=== PATIENT | female | born 1985 | race Hispanic/Latino ===

== ENCOUNTER 2020-03-31 20:27 | Emergency (ER) | payer SELFPAY ==
--- OUTSIDE RECORDS SUMMARY | 2020-03-31 20:31 | XMS REPORT | Continuity of Care Document ---
:1985 Author Organization [facility] t Address [address] [place] [address] Care Team Providers Name Role Phone Unavailable Unavailable Unavailable Payers Payer Name Policy Type Policy Number Effective Date Expiration Date S ource Problems This patient has no known problems. Allergies, Adverse Reactions, Alerts Allergy Allergy Status Severity Reaction(s) Onset Inactive Treating Comm ents Source Name Type Date Date Clinician CODEINE DA Active U 2009-0 [facility] No Known DA Active U 2009-0 [facility] Contrast 3-16 [facility] No Known DA Active U 2009-0 [facility] Food 3-16 [facility] No Known DA Active U 2009-0 [facility] Other 3-16 [facility] Medications This patient has no known medications. Procedures This patient has no known procedures. Results Test Description Test Time Test Comments Results Result Comments Source BEDSIDE CREATININE 2019-02-17 13:37:00 Test Item Value Reference Range Interpretation Comme nts BEDSIDE CREATININE (test code = CREATBED) 0.6 mg/dL 0.52-1.04 N - US PELVIC [id number] 02:02:00 FAX: Fernanda Dutta [phone] [place]: St: REG Name: OLIVIA CORRIGAN [facility] [place] : 1985 Age/S: 33/F [address] Unit#: [id number] Loc: [place] [address] Phys: Fernanda Romo NP Acct: [id number] Dis Date: Status: REG ER PHONE #: [phone] Exam Date: 12/25/2018 0156 FAX #: [phone] Reason: LOWER ABD PAIN EXAMS: CPT CODE: [id number] US PELVIC COMPLETE 17931 Exam: Pelvic sonogram. Location: H 12 History: See reason on US PELVIC NON OB COMPLETE Technique: A real-time transabdominal pelvic sonogram was performed. A transvaginal exam was performed to better evaluate the pelvic anatomy. Grayscale, color flow and spectral analysis of the ovarian vessels was performed. Findings: The uterus is normal in size, shape and echotexture and measures 8.5 x 4.0 x 5.1 cm. The endometrial canal is empty. The stripe measures 1.1 cm. The ovaries are well visualized. The right ovary measures 2.8 x 2.4 x 2.3 cm with a 1.3 cm cyst noted. The left ovary measures 2.8 x 1.9 x 1.8 cm. There is good blood flow to both ovaries. No adnexal mass is seen. A small amount of free fluid is found the right adnexa. Impression: 1. Right ovarian cyst and surrounding fluid. 2. Otherwise unremarkable exam. at 0202 Reported and signed by: Ranjith Pimentel CC: Fernanda Romo NP Techn ologist: Radha Valentine RDMS RVT Trnscrd Date/Time/By: 12/25/2018 (0202) : By: TootieFC PAGE 1 Signed Report FAX: Fernanda Dutta [phone] [place]: St: REG Name: OLIVIA CORRIGAN [facility] : 1985 Age/S: 33/F [address] Unit #: [id number] Loc: [place] [address] Phys: Fernanda Romo [employer] MANAGER Acct: [id number] Dis Date: Status: RE G ER PHONE #: [phone] Exam Date: 12/25/2018155 FAX #: [phone] Reason: LOWER ABD PAIN EXAMS: CPT CODE: [id number] US PELVIC COMPLETE 74545 <Continued> Orig Print D/T: S: 12/25/2018 (0205) PAGE 2 Signed Report- US TRANSVAGINAL NON [id number] 02:02:00 FAX: Fernanda Dutta [phone] [place]: St: REG Name: OLIVIA CORRIGAN [facility] : 1985 Age/S: 33/F [address] Unit#: [id number] Loc: [place] [address] Phys: Fernanda Romo [employer] STORE MANAGER Acct: [id number] Dis Date: Status: REG ER PHONE #: [phone] Exam Date: 12/25/2018155 FAX #: [phone] Reason: See reason on US PELVIC NON OB COMPLETE EXAMS: CPT CODE: [id number] [place] [address] Exam: Pelvic sonogram. Location: H 12 History: See reason on US PELVIC NON OB COMPLETE Technique: A real-time transabdominal pelvic sonogram was performed. A transvaginal exam was performed to better evaluate the pelvic anatomy. Grayscale, color flow and spectral analysis of the ovarian vessels was performed. Findings: The uterus is normal in size, shape and echotexture and measures 8.5 x 4.0 x 5.1 cm. The endometrial canal is empty. The stripe measures 1.1 cm. The ovaries are well visualized. The right ovary measures 2.8 x 2.4 x 2.3 cm with a 1.3 cm cyst noted. The left ovary measures 2.8 x 1.9 x 1.8 cm. There is good blood flow to both ovaries. No adnexal mass is seen. A small amount of free fluid is found the right adnexa. Impression: 1. Right ovarian cyst and surrounding fluid. 2. Otherwise unremarkable exam. at 0202 Reported and signed by: Ranjith Pimentel CC: Fernanda Romo NP Techn ologist: Radha Valentine [facility] RVT; S#:[id number] Trnscrd Date/Time/By: 12/25/2018 (0202) : By: TootieFC PAGE 1 Signed Report FAX: Fernanda Dutta [phone] [place]: St: REG Name: OLIVIA CORRIGAN [facility] : 1985 Age/S: 33/F [address] Unit #: [id number] Loc: [place] [address] Phys: Fernanda Romo NP Acct: [id number] Dis Date: Status: RE ER PHONE #: [phone] Exam Date: 12/25/2018 0156 FAX #: [phone] Reason: See reason on US PELVIC NON OB COMPLETE EXAMS: CPT CODE: [id number] [place] [address] <Continued> Orig Print D/T: S: 12/25/2018 (0205) PAGE 2 Signed Report- DUP AB/PEL/SC/[id number] 02:02:00 FAX: Fernanda Dutta [phone] [place]: St: REG Name: OLIVIA CORRIGAN [facility] : 1985 Age/S: 33/F [address] Unit#: [id number] Loc: [place] [address] Phys: Fernanda Romo [employer]ORE MANAGER Acct: [id number] Dis Date: Status: REG ER PHONE #: [phone] Exam Date: 12/25/2018 0156 FAX #: [phone] Reason: See reason on US PELVIC NON OB COMPLETE EXAMS: CPT CODE: [id number] [facility] AB/PEL/SC/LTD 52789 Exam: Pelvic sonogram. Location: H 12 History: See reason on US PELVIC NON OB COMPLETE Technique: A real-time transabdominal pelvic sonogram was performed. A transvaginal exam was performed to better evaluate the pelvic anatomy. Grayscale, color flow and spectral analysis of the ovarian vessels was performed. Findings: The uterus is normal in size, shape and echotexture and measures 8.5 x 4.0 x 5.1 cm. The endometrial canal is empty. The stripe measures 1.1 cm. The ovaries are well visualized. The right ovary measures 2.8 x 2.4 x 2.3 cm with a 1.3 cm cyst noted. The left ovary measures 2.8 x 1.9 x 1.8 cm. There is good blood flow to both ovaries. No adnexal mass is seen. A small amount of free fluid is found the right adnexa. Impression: 1. Right ovarian cyst and surrounding fluid. 2. Otherwise unremarkable exam. at 0202 Reported and signed by: Ranjith Pimentel CC: Fernanda Romo NP Techn ologist: Radha Valentine RDMS RVT Trnscrd Date/Time/By: 12/25/2018 (020) : By: Tootie PAGE 1 Signed Report FAX: Fernanda Dutta [phone] [place]: St: REG Name: CORRIGANOLIVIA LUKE [facility] : 1985 Age/S: 33/F [address] Unit #: [id number] Loc: [place] [address] Phys: Fernanda Romo NP Acct: [id number] Dis Date: Status: DEV REDDY PHONE #: [phone] Exam Date: 12/25/2018 0156 FAX #: [phone] Reason: See reason on US PELVIC NON OB COMPLETE EXAMS: CPT CODE: [id number] DUP AB/PEL/SC/LTD 60768 <Continued> Orig Print D/T: S: 12/25/2018 (2195) PAGE 2 Signed Report BASIC METABOLIC [id number] 00:29:00 Test Item Value Reference Range Interpretation Comments SODIUM (test code = 139 mmol/L 137-145 N NA) POTASSIUM (test code 3.7 mmol/L 3.4-5.0 N = K) CHLORIDE (test code = 100 mmol/L 98-107 N CL) CARBON DIOXIDE (test 25 mmol/L 22-30 N code = CO2) GLUCOSE (test code = 118 mg/dL 74-106 H GLU) BLOOD UREA NITROGEN 9 mg/dL 7-17 N (test code = BUN) GLOMERULAR FILTRATION 121 >60 The es timated RATE (test code = glomerular filtration GFR) rate is compute d usingpatient ra ce, age (>18), sex, and serum creatinine. If anyof the needed data elements are mi ssing the Laboratory cannot compute an lee mation of the glomerul ar filtration rate . CREATININE (test code 0.6 mg/dL 0.5-1.0 N = CREAT) CALCIUM (test code = 9.7 mg/dL 8.4-10.2 N CA) LIVER FUNCTION [id number] 00:29:00 Test Item Value Reference Range Interpretation Comments TOTAL PROTEIN (test 8.0 g/dL 6.3-8.2 N code = PROT) ALBUMIN (test code = 4.8 g/dL 3.5-5.0 N ALB) BILIRUBIN TOTAL (test 0.3 mg/dL 0.2-1.3 N code = BILT) BILIRUBIN CONJUGATED 0 mg/dL 0-0.3 N ~~~~~~~ ~~~~~~~~~~~~~~ (test code = BILCON) ~~~~~~~ ~~~~~~~~~~~~~~ ~~~~~~~~~~~~~~~ ~~~CON JUGATED BILIRUB IN IS THE REPLACEMENT ASSAY FOR DIRECTBILIRUBIN .~~~~~ ~~~~~~~~~~~~~~~ ~~~~~~ ~~~~~~~~~~~~~~~ ~~~~~~ ~~~~~~~~~~~~~ BILIRUBIN UNCONJUGATED 0.1 mg/dL 0-1.1 N (test code = BILUNC) SGOT/AST (test code = 17 U/L 15-46 N AST) SGPT/ALT (test code = 23 U/L 13-69 N ALT) ALKALINE PHOSPHATASE 54 U/L 38-126 N (test code = ALKP) [id number] 00:29:00 Test Item Value Reference Range Interpretation Comments LIPASE (test code = LIP) 44 U/L 23-300 N - CT ABD PELVIS [id number] 00:29:00 FAX: Fernanda Dutta [phone] [place]: St: REG Name: OLIVIA CORRIGAN [facility] : 1985 Age/S: 33/F [address] Unit: [id number] Loc: [place] [address] Phys: Fernanda Romo [employer] STORE MANAGER Acct: [id number] Dis Date: Status: REG ER PHONE #: [phone] Exam Date: 12/25/2018 0018 FAX #: [phone] Reason: diffuse abd pain EXAMS: CPT CODE: [id number] CT ABD PELVIS W/CONT 92822 EXAM: - CT ABD PELVIS W/CONT LOCATION: C3 INDICATION: 33 years -old Female with diffuse abd pain TECHNIQUE: Contrast - IV contrast was given. No oral contrast was given Portal venous phase - abdomen and pelvis Delayed images through the abdomen obtained. Reconstructions - coronal and sagittal planes This exam was performed according to our departmental dose-optimization program, which includes automated exposure control, adjustment of the mA and/or kV according to patient size and/or use of iterative reconstruction technique COMPARISON: None FINDINGS: Statements: None. Thoracic: Included images of the lower chestdemonstrate no abnormalities. Hepatobiliary: The liver is normal without focal le jose elias. The gallbladder is normal. No biliary dilation. Pancreas: Normal. Spleen: Normal. Adrenals: Normal. Genitourinary: In the right kidney 1.6 cm cortical cyst like lesion is noted. No hydronephrosis. Evaluation of the bladder islimited, but no obvious bladder abnormality is present. Bilateral fallopian tube occlusion devices noted. 1.6 cm cystlike lesion in the right ovary. 4 x 3.1 x 3.1 cm geographic fluid density identified in the right adnexa. Gastrointestinal: No bowel obstruction or perienteric inflammation. The appendix is normal. PAGE 1 Signed Report (CONTINUED) FAX: Fernanda Dutta [phone] [place]: St: REG -- Name:OLIVIA CORRIGAN [facility] : 1985 Age/S: 33/F [address] Unit: [id number] Loc: [place] [address] Phys: Fernanda Romo NP Acct: [id number] Dis Date: Status: REG ER PHONE #: [phone] Exam Date: 12/25/2018 0018 FAX #: [phone] Reason: diffuse abd pain EXAMS: CPT CODE: [id number] CT ABD PELVIS W/CONT 51388 <Continued> Vascular: No evidence of aneurysm or dissection. Lymphatics: No enlarged lymph nodesby CT size criteria. Bones/Soft Tissues: No acute osseous findings. No ventral hernias. Peritoneum/Other: No extraluminal air. No extraluminal fluid. IMPRESSION: 1.6 cm right ovarian cystlike lesion. 4 x 3.1 x 3.1 cm geographic fluid density in the right adnexa likely a peritoneal inclusion cyst.Normal appendix. at 0029 Reported and signed by: Shaun Grullon MD CC: Fernanda Romo NP Technologist: Rose Burleson; BRENNAN DACOSTA Trnscrd Dt/Tm: 12/25/2018 (0029) [email or web address] Orig Print D/T: S: 12/25/2018 (0032 PAGE 2 Signed ReportHCG [id number] 00:23:00 Test Item Value Reference Range Interpretation Comments HCG POC (test code <5.0 IU/L 0-4.9 N = HCGPOC) Result s of 5.0-25.0 IU/L a re indeterminate a nd do not ruleout pregnan cy. Because HCG values doub le approximately e very48 hours in a norm al , swapna ents with low levels ofHC G should be resampled and r etested after 48 hours toconfirm . URINALYSIS [id number] 00:22:00 Test Item Value Reference Range Interpretation Comments UA COLOR (test code = COLU) Straw Yellow UA APPEARANCE (test code = Slightly-Cloudy Clear APPU) UA GLUCOSE DIPSTICK (test Negative Negative code = DGLUU) UA BILIRUBIN DIPSTICK (test Negative Negative code = BILU) UA KETONE DIPSTICK (test code Negative mg/dL Negative = KETU) UA SPECIFIC GRAVITY (test 1.004 <1.030 code = SGU) UA BLOOD DIPSTICK (test code 1+ Negative A = PARAM) UA PH DIPSTICK (test code = 7.0 5.0-8.0 JUNE) UA PROTEIN DIPSTICK (test NEGATIVE mg/dL Negative code = PROU) UA UROBILINOGEN DIPSTICK Negative mg/dL Negative (test code = URO) UA NITRITE DIPSTICK (test Negative Negative code = ISMAEL) UA LEUKOCYTE ESTERASE TRACE Negative A DIPSTICK (test code = LEUU) UA WBC (test code = WBCU) 0-3 /HPF <4-5 UA RBC (test code = RBCU) 0-3 /HPF <4-5 UA BACTERIA (test code = Rare /HPF None-Rare BACU) UA SQUAMOUS CELLS (test code 0-5 (RARE) /HPF 0-5 (RARE) = SQU) CBC W/AUTO [id number] 00:19:00 Test Item Value Reference Range Interpretation Comments WHITE BLOOD CELL (test code = 14.1 x10 3/uL 5.0-12.0 H WBC) RED BLOOD CELL (test code = 4.90 x10 6/uL 4.20-5.40 N RBC) HEMOGLOBIN (test code = HGB) 14.8 g/dL 12.0-16.0 N HEMATOCRIT (test code = HCT) 43.7 % 36.0-46.0 N MEAN CELL VOLUME (test code = 89 fL 81-99 N MCV) MEAN CELL HGB (test code = 30.2 pg 27-31 N MCH) MEAN CELL HGB CONCENTRATION 33.9 g/dL 33-37 N (test code = MCHC) RED CELL DISTRIBUTION WIDTH 12.3 % 11.5-15.5 N (test code = RDW) PLATELET COUNT (test code = 290 x10 3/uL 130-400 N PLT) MEAN PLATELET VOLUME (test 10.4 fL 9.4-16.4 N code = MPV) NEUTROPHIL % (test code = NT%) 76.9 % 43-65 H IMMATURE GRANULOCYTE % (test 0.4 % 0.0-2.0 N code = IG%) LYMPHOCYTE % (test code = LY%) 15.7 % 20.5-45.5 L MONOCYTE % (test code = MO%) 6.7 % 5.5-11.7 N EOSINOPHIL % (test code = EO%) 0.1 % 0.9-2.9 L BASOPHIL % (test code = BA%) 0.2 % 0.2-1.0 N NUCLEATED RBC % (test code = 0.0 % 0-1.0 N NRBC%) NEUTROPHIL # (test code = NT#) 10.88 x10 3/uL 2.2-4.8 H IMMATURE GRANULOCYTE # (test 0.05 x10 3/uL 0-0.03 H code = IG#) LYMPHOCYTE # (test code = LY#) 2.22 x10 3/uL 1.3-2.9 N MONOCYTE # (test code = MO#) 0.94 x10 3/uL 0.3-0.8 H EOSINOPHIL # (test code = EO#) 0.01 x10 3/uL 0.0-0.2 N BASOPHIL # (test code = BA#) 0.03 x10 3/uL 0.0-0.1 N
[2020-03-31] MEDS ORDERED: NA CHLORIDE 0.9% 1,000 ML ONE ×2 (21:19→22:41)
[2020-03-31 21:21] LABS: Absolute Lymphocytes (CBC) 1.6 K/uL (0.7-4.9); Basophils % 0.4 % (0-1.3); Hematocrit 39.8 % (36.0-45.0); Lymphocytes % 13.8 % (15.3-44.8); MPV 8.1 fL (7.6-11.3); RBC Red Blood Cell Count 4.26 M/uL (3.86-4.86)
[2020-03-31] MEDS ORDERED: ACETAMINOPHEN 500 MG TAB ONE (21:31)
[2020-03-31 21:38] LABS: ALT/SGPT 13 U/L (12-78); AST/SGOT 7 U/L (15-37); Albumin 3.4 g/dL (3.4-5.0); Alkaline Phosphatase 73 U/L (45-117); BUN Blood Urea Nitrogen 5 mg/dL (7-18); Bicarbonate 27 mmol/L (21-32); Bilirubin Direct 0.2 mg/dL (0-0.2); Bilirubin Total 0.8 mg/dL (0.2-1.0); Glucose Level 91 mg/dL (74-106); Potassium 3.6 mmol/L (3.5-5.1); Protein, Total 6.4 g/dL (6.4-8.2); Sodium Level 140 mmol/L (136-145)
--- NOTE | 2020-03-31 22:07 | RAD REPORT ---
EXAM DESCRIPTION: RAD - Chest Single View - 03/31/2020 9:08 pm CLINICAL HISTORY: COUGH Chest pain. COMPARISON: No comparisons FINDINGS: Portable technique limits examination quality. The lungs are grossly clear. The heart is normal in size. No displaced fractures. IMPRESSION: No acute intrathoracic process suspected.
--- NOTE | 2020-04-01 00:04 | EDPHYS ---
Physician Documentation [facility] Name: Lisseth Youngblood Age: 34 yrs Sex: Female : 1985 Arrival Date: 03/31/2020 Time: 20:32 Bed 20 Private MD: ED Physician Maxx Orellana HPI: 03/31 21:39 This 34 yrs old Female presents to ER via Ambulatory with complaints of mh7 General Weakness, Swollen Glands, Lethargic. 21:39 The patient presents with sore throat. The patient describes throat pain as mh7 intermittent. Onset: The symptoms/episode began/occurred 1 week(s) ago. Severity of symptoms: At their worst the symptoms were moderate, 3 day(s) ago, in the emergency department the symptoms are unchanged. Modifying factors: The symptoms are alleviated by over the counter medications, Tylenol, the symptoms are aggravated by swallowing, Patient's oral intake status: limited fluid intake, limited food intake, unaware of sick contact. Associated signs and symptoms: Pertinent positives: cough, fever, flu-like symptoms, rhinorrhea, Sore throat body aches, Pertinent negatives chest pain, diarrhea, earache, headache, shortness of breath, vomiting. The patient has experienced similar episodes in the past, multiple times. Historical: - Allergies: 20:39 No Known Allergies; sg - Immunization history:: Adult Immunizations up to date. - Social history:: Smoking status: Patient denies any tobacco usage or history of. ROS: 21:39 Eyes: Negative for injury, pain, redness, and discharge, Cardiovascular: Negative for mh7 chest pain, palpitations, and edema, Abdomen/GI: Negative for abdominal pain, nausea, vomiting, diarrhea, and constipation, Back: Negative for injury and pain, : Negative for injury, bleeding, discharge, and swelling, MS/Extremity: Negative for injury and deformity, Skin: Negative for injury, rash, and discoloration, Neuro: Negative for headache, weakness, numbness, tingling, and seizure, Psych: Negative for depression, anxiety, suicide ideation, homicidal ideation, and hallucinations, Allergy/Immunology: Negative for hives, rash, and allergies, Endocrine: Negative for neck swelling, polydipsia, polyuria, polyphagia, and marked weight changes. Exam: 21:39 Head/Face: Normocephalic, atraumatic. Eyes: Pupils equal round and reactive to light, mh7 extra-ocular motions intact. Lids and lashes normal. Conjunctiva and sclera are non-icteric and not injected. Cornea within normal limits. Periorbital areas with no swelling, redness, or edema. 21:39 Chest/axilla: Normal chest wall appearance and motion. Nontender with no deformity. No lesions are appreciated. Cardiovascular: Regular rate and rhythm with a normal S1 and S2. No gallops, murmurs, or rubs. Normal PMI, no JVD. No pulse deficits. Respiratory: Lungs have equal breath sounds bilaterally, clear to auscultation and percussion. No rales, rhonchi or wheezes noted. No increased work of breathing, no retractions or nasal flaring. Abdomen/GI: Soft, non-tender, with normal bowel sounds. No distension or tympany. No guarding or rebound. No evidence of tenderness throughout. Back: No spinal tenderness. No costovertebral tenderness. Full range of motion. Skin: Warm, dry with normal turgor. Normal color with no rashes, no lesions, and no evidence of cellulitis. MS/ Extremity: Pulses equal, no cyanosis. Neurovascular intact. Full, normal range of motion. Neuro: Awake and alert, GCS 15, oriented to person, place, time, and situation. Cranial nerves II-XII grossly intact. Motor strength 5/5 in all extremities. Sensory grossly intact. Cerebellar exam normal. Normal gait. Psych: Awake, alert, with orientation to person, place and time. Behavior, mood, and affect are within normal limits. 21:39 Constitutional: The patient appears in no acute distress, alert, awake, uncomfortable. 21:39 ENT: External ear(s): are unremarkable, Nose: is normal, Mouth: is normal, Posterior pharynx: Airway: normal, Tonsils: bilaterally enlarged, with erythema, Uvula: normal, swelling, that is mild, erythema, that is mild, exudate, that is mild, peritonsillar mass, is not appreciated, pooling of secretions, is not appreciated, Dental exam: normal, Voice: is normal, Breath odor: is normal. 21:39 Neck: C-spine: appears grossly normal, Thyroid: appears normal, Trachea: is midline with no obvious abnormalities, ROM/movement: is normal, Lymph nodes: lymphadenopathy is appreciated, anterior cervical nodes. Vital Signs: 21:21 BP 106 / 65; Pulse 104; Resp 19; Temp 101.3; Pulse Ox 100% ; rv 22:19 BP 95 / 55; Pulse 93; Resp 16; Temp 98.6; Pulse Ox 100% on R/A; rv 23:00 BP 95 / 59; Pulse 84; Resp 16; Pulse Ox 100% on R/A; rv 23:27 BP 117 / 46; Pulse 84; Resp 17; Pulse Ox 99% on R/A; rv MDM: 20:46 Patient medically screened. [facility] 04/01 00:00 Differential diagnosis: bronchitis, epiglottitis, influenza, laryngitis, peritonsillar 7 abscess pharyngitis, tonsillitis. Data reviewed: vital signs, nurses notes, lab test result(s), CBC, electrolytes, radiologic studies, CT scan, plain films. Data interpreted: Pulse oximetry: on room air is 99 %. Interpretation: normal. Counseling: I had a detailed discussion with the patient and/or guardian regarding: the historical points, exam findings, and any diagnostic results supporting the discharge/admit diagnosis, lab results, radiology results, the need for outpatient follow up, to return to the emergency department if symptoms worsen or persist or if there are any questions or concerns that arise at home. Response to treatment: the patient's symptoms have markedly improved after treatment. 03/31 20:48 Order name: Influenza Screen (a \T\ B); Complete Time: 22:26 [facility] 03/31 20:48 Order name: Strep; Complete Time: 22:26 [facility] 03/31 20:48 Order name: CBC with Diff; Complete Time: 21:37 [facility] 03/31 20:48 Order name: BMP; Complete Time: 22:26 [facility] 03/31 20:48 Order name: LFT's; Complete Time: 22:26 [facility] 03/31 21:46 Order name: Throat Culture EDMS 03/31 20:48 Order name: Chest Single View XRAY; Complete Time: 22:26 [facility] 03/31 22:22 Order name: COVID-19 tt3 03/31 22:36 Order name: CT Soft Tissue Neck W/contr [facility] Administered Medications: 03/31 21:19 Drug: NS 0.9% 1000 ml Route: IV; Rate: 1000 ml; Site: right antecubital; rv 23:26 Follow up: IV Status: Completed infusion; IV Intake: 1000ml rv 21:20 Drug: Tylenol 1000 mg Route: PO; rv 23:26 Follow up: Response: No adverse reaction; Temperature is decreased rv 23:00 Drug: NS 0.9% 1000 ml Route: IV; Rate: 1 bolus; Site: right antecubital; rv 04/01 00:02 Follow up: IV Status: Completed infusion; IV Intake: 1000ml rv 00:02 Drug: predniSONE 60 mg Route: PO; rv Disposition: 04/01/20 00:03 Discharged to Home. Impression: Tonsillitis. - Condition is Stable. - Prescriptions for penicillin V potassium 500 mg Oral tablet - take 1 tablet by ORAL route every 8 hours for 10 days; 30 tablet. - Medication Reconciliation Form, Thank You Letter, Antibiotic Education, Prescription Opioid Use form. - Follow up: Sandra Aguilar MD; When: 1 - 2 days; Reason: Worsening of condition, Recheck today's complaints. Follow up: Private Physician; When: 1 - 2 days; Reason: Worsening of condition, Recheck today's complaints, Continuance of care, Re-evaluation by your physician. - Problem is an acute exacerbation. - Symptoms have improved. Signatures: Dispatcher [employer] EDRaciel Dsouza RN RN Eric Benitez RN RN rv Maxx Orellana MD MD mh7 Corrections: (The following items were deleted from the chart) 00:16 00:03 04/01/2020 00:03 Discharged to Home. Impression: Tonsillitis. Condition is sg Stable. Forms are Medication Reconciliation Form, Thank You Letter, Antibiotic Education, Prescription Opioid Use. Follow up: Sandra Aguilar; When: 1 - 2 days; Reason: Worsening of condition, Recheck today's complaints. Follow up: Private Physician; When: 1 - 2 days; Reason: Worsening of condition, Recheck today's complaints, Continuance of care, Re-evaluation by your physician. Problem is an acute exacerbation. Symptoms have improved. mh7
--- NOTE | 2020-04-01 00:04 | ER ---
Nurse's Notes [facility] Name: Lisseth Youngblood Age: 34 yrs Sex: Female : 1985 Arrival Date: 03/31/2020 Time: 20:32 Bed 20 Private MD: Diagnosis: Tonsillitis Presentation: 03/31 20:38 Chief complaint: Patient states: Cough that began today, reports having general sg weakness as well for 3-4 days, worsening this evening, states having swollen glands in the neck and throat, unsure of any fever at home per pt. Coronavirus screen: chills, fatigue, sore throat, Client presents with at least one sign or symptom that may indicate coronavirus-19. Standard/surgical mask placed on the client. Provider contacted for isolation considerations. Ebola Screen: Patient negative for fever greater than or equal to 101.5 degrees Fahrenheit, and additional compatible Ebola Virus Disease symptoms Patient denies exposure to infectious person. Patient denies travel to an Ebola-affected area in the 21 days before illness onset. No symptoms or risks identified at this time. Initial Sepsis Screen: Does the patient meet any 2 criteria? HR > 90 bpm. No. Patient's initial sepsis screen is negative. Does the patient have a suspected source of infection? No. Patient's initial sepsis screen is negative. Risk Assessment: Do you want to hurt yourself or someone else? Patient reports no desire to harm self or others. Onset of symptoms was March 31, 2020. Care prior to arrival: None. Transition of care: patient was not received from another setting of care. 20:38 Method Of Arrival: Ambulatory sg 20:38 Acuity: CINTHIA 3 sg Triage Assessment: 21:21 General: Appears. rv 21:21 Pain: Complains of pain in THROAT. rv Historical: - Allergies: 20:39 No Known Allergies; sg - Immunization history:: Adult Immunizations up to date. - Social history:: Smoking status: Patient denies any tobacco usage or history of. Screenin:20 Abuse screen: Denies threats or abuse. Denies injuries from another. Nutritional rv screening: No deficits noted. Tuberculosis screening: No symptoms or risk factors identified. Fall Risk None identified. Assessment: 23:00 General: Appears uncomfortable, Behavior is calm, cooperative. rv 23:00 Reassessment: patient updated on the test results and plan of care. new order received. rv awaiting result of CT scan as of the moment. Vital Signs: 21:21 BP 106 / 65; Pulse 104; Resp 19; Temp 101.3; Pulse Ox 100% ; rv 22:19 BP 95 / 55; Pulse 93; Resp 16; Temp 98.6; Pulse Ox 100% on R/A; rv 23:00 BP 95 / 59; Pulse 84; Resp 16; Pulse Ox 100% on R/A; rv 23:27 BP 117 / 46; Pulse 84; Resp 17; Pulse Ox 99% on R/A; rv ED Course: 20:32 Patient arrived in ED. bp1 20:38 Maxx Orellana MD is Attending Physician. mh7 20:39 Triage completed. sg 20:40 Arm band placed on. sg 21:00 Eric Zamora, GERARDO is Primary Nurse. rv 21:09 Chest Single View XRAY In Process Unspecified. EDMS 21:10 Inserted saline lock: 20 gauge in right antecubital area, using aseptic technique. rv Blood collected. 21:10 Initial lab(s) drawn, by vt, sent to lab. rv 21:21 Patient has correct armband on for positive identification. Pulse ox on. NIBP on. rv 23:14 CT Soft Tissue Neck W/contr In Process Unspecified. EDMS 04/01 00:02 Sandra Agiular MD is Referral Physician. [facility] 00:14 No provider procedures requiring assistance completed. IV discontinued, intact, No sg redness/swelling at site. IV dc by ER staff. Administered Medications: 03/31 21:19 Drug: NS 0.9% 1000 ml Route: IV; Rate: 1000 ml; Site: right antecubital; rv 23:26 Follow up: IV Status: Completed infusion; IV Intake: 1000ml rv 21:20 Drug: Tylenol 1000 mg Route: PO; rv 23:26 Follow up: Response: No adverse reaction; Temperature is decreased rv 23:00 Drug: NS 0.9% 1000 ml Route: IV; Rate: 1 bolus; Site: right antecubital; rv 04/01 00:02 Follow up: IV Status: Completed infusion; IV Intake: 1000ml rv 00:02 Drug: predniSONE 60 mg Route: PO; rv Intake: 03/31 23:26 IV: 1000ml; Total: 1000ml. rv 04/01 00:02 IV: 1000ml; Total: 2000ml. rv Outcome: 00:03 Discharge ordered by MD. rivas 00:14 Discharged to home ambulatory, with friend. 00:14 Condition: good 00:14 Discharge instructions given to patient, Instructed on discharge instructions, follow up and referral plans. medication usage, safety practices, Demonstrated understanding of instructions, follow-up care, medications, Prescriptions given X 1. 00:16 Patient left the ED. sg Addendum: 04/03/2020 08:43 Addendum: COVID-19 Result: Negative result given to RN to notify pt. Attempted to s s contact pt regarding negative COVID-19 swab results. Unable to leave voice mail due to the number provided was either not a working number, the voice mail has not been set up, or the voice mailbox is full.. Other: Not a working number. Signatures: Dispatcher [employer] Raciel Day RN RN sg Smirch, Shelby, RN RN ss Vicente, Ronaldo, RN RN rv Paniauga, Brittany bp1 Holmes, Maurice, MD MD mh7
[2020-04-01] MEDS ORDERED: predniSONE 20 MG TAB ONE (00:13)
[2020-04-01 05:06] VITALS: TEMP 98.6
[2020-04-01 05:09] VITALS: BP 117/46; O2SAT 99
--- NOTE | 2020-04-01 17:55 | RAD REPORT ---
EXAM DESCRIPTION: CT - Soft Tissue Neck W/Contr - 04/01/2020 1:16 am CLINICAL HISTORY: 34 years Female SORE THROAT. CLINICAL HISTORY: CT imaging of the soft tissues of the neck were performed following the administra tion of intravenous contrast..The CT study is performed according to ALARA (as low as reasonably achi evable) or ALARA/IMAGE GENTLY, with automatic adjustment of mA and/or kV according to patient size. Performed on: 03/31/2020 at 11:04 PM COMPARISON: None. FINDINGS: The visualized portions of the brain and orbits are normal. The oral cavity and nasopharynx are normal. There is mild hypertrophy of the palatine tonsils. Some p ortions of the oral cavity and oropharynx are obscured by streak artifact related to the patient's de ntal hardware. There is a faintly striated enhancement pattern of the palatine tonsils which can be seen with tonsillitis. The parapharyngeal fat planes are preserved. The hypopharynx is unremarkable. The parotid and submandibular glands are grossly within normal limits. No intrinsic mass lesions are seen. . The carotid sheaths are normal bilaterally. The epiglottis and aryepiglottic folds are normal. The vallecula and pyriform sinuses are grossly nor mal. The preepiglottic fat is preserved. The thyroid, cricoid and arytenoid cartilages are normal. The region of the false and true vocal cords is normal as is the anterior commissure. There is trace mucosal thickening of the paranasal sinuses. The mastoid air cells are clear. No definite pathologically enlarged lymph nodes are identified. Occasional mildly prominent lymph nod es are present along the neck bilaterally likely reflecting reactive inflammatory lymph nodes. The thyroid gland is normal in size and configuration. The thoracic inlet is normal. The superior mediastinum and lung apices are normal. No acute osseous abnormalities are identified. No focal soft tissue abnormalities are seen. IMPRESSION: 1. CT findings suggest tonsillitis. Some portions of the oral cavity and oropharynx are secured by streak artifact related to the patient's dental hardware. There is no evidence of a perito nsillar abscess. 2. Otherwise, grossly unremarkable CT scan of the soft tissues of the neck. Electronically signed by: Niecy Pugh DO 03/31/2020 11:51 PM [employer] Due to temporary technical issues with the PACS/Fluency reporting system, reports are being signed by the in house radiologists without review as a courtesy to insure prompt reporting. The interpreting radiologist is fully responsible for the content of the report.
== END 2020-04-01 00:16 | disposition home or self-care (01) ==
LOC: ER 20:27
DX: J03.90 Acute tonsillitis, unspecified (principal); Z20.828 Contact with and (suspected) exposure to other viral communicable diseases
CPT/HCPCS: 36415; 70491; 71045; 80048; 80076; 85025; 87070; 87081; 87804; 96360; 96361; 99284; J7030; J7512; Q9967; U0002

== ENCOUNTER 2021-10-04 18:16 | Emergency (ER) | payer SELFPAY ==
--- OUTSIDE RECORDS SUMMARY | 2021-10-04 18:19 | XMS REPORT | Continuity of Care Document ---
:1985 Author Organization [facility] t Address [address] [place] [address] Care Team Providers Name Role Phone Unavailable [...] DA Active U 2009-0 [facility] Other 3-16 [facility] 00:00: [facility] Medications This patient has no known medications. Procedures This patient has no known procedures. Results Test Description Test Time Test Comments Results Result Comments Source BEDSIDE CREATININE 2019-02-17 13:37:00 Test Item Value Reference Range Interpretation Comme nts BEDSIDE CREATININE (test code = CREATBED) 0.6 mg/dL 0.52-1.04 N - US PELVIC [id number] 02:02:00 FAX: Fernanda Dutta [phone] [place]: St: REG Name: OLIVIA CORRIGAN [facility] Julito : 1985 Age/S: 33/F [address] Unit#: [id number] Loc: [place] [address] Phys: Fernanda Romo NP Acct: [id number] Dis Date: Status: REG ER PHONE #: [phone] Exam Date: 12/25/2018 0156 FAX #: [phone] Reason: LOWER ABD PAIN EXAMS: CPT CODE: [id number] US PELVIC COMPLETE 68717 Exam: Pelvic sonogram. Location: H 12 History: [...] PAGE 1 Signed Report FAX: Fernanda Dutta [phone] [place]: St: REG Name: OLIVIA CORRIGAN [facility] : 1985 Age/S: 33/F [address] Unit #: [id number] Loc: [place] [address] Phys: Fernanda Romo BEHAVIORIST Acct: [id number] Dis Date: Status: RE G ER PHONE #: [phone] Exam Date: 12/25/2018155 FAX #: [phone] Reason: LOWER ABD PAIN EXAMS: CPT CODE: [id number] US PELVIC COMPLETE 99845 <Continued> Orig Print D/T: S: 12/25/2018 (0205) PAGE 2 Signed Report- US TRANSVAGINAL NON [id number] 02:02:00 FAX: Fernanda Dutta [phone] [place]: St: REG Name: OLIVIA CORRIGAN [facility] : 1985 Age/S: 33/F [address] Unit#: [id number] Loc: [place] [address] Phys: Fernanda Romo BEHAVIORIST Acct: [id number] Dis Date: Status: REG ER PHONE #: [phone] Exam Date: 12/25/2018155 FAX #: [phone] Reason: See reason on US PELVIC NON OB COMPLETE EXAMS: CPT CODE: [id number] [place] [address] Exam: Pelvic sonogram. Location: H 12 History: [...] Fernanda Romo NP Techn ologist: Radha [facility] RVT; S#:[id number] Trnscrd Date/Time/By: 12/25/2018 (0202) : By: Tootie PAGE 1 Signed Report FAX: Fernanda Dutta [phone] [place]: St: REG Name: OLIVIA CORRIGAN [facility] : 1985 Age/S: 33/F [address] Unit #: [id number] Loc: [place] [address] Phys: Fernanda Romo NP Acct: [id number] Dis Date: Status: RE G ER PHONE #: [phone] Exam Date: 12/25/2018 0156 FAX #: [phone] Reason: See reason on US PELVIC NON OB COMPLETE EXAMS: CPT CODE: [id number] [place] [address] <Continued> Orig Print D/T: S: 12/25/2018 (0205) PAGE 2 Signed Report- DUP AB/PEL/SC/[id number] 02:02:00 FAX: Fernanda Dutta [phone] [place]: St: REG Name: OLIVIA CORRIGAN [facility] : 1985 Age/S: 33/F [address] Unit#: [id number] Loc: [place] [address] Phys: Fernanda Romo BEHAVIORIST Acct: [id number] Dis Date: Status: REG ER PHONE #: [phone] Exam Date: 12/25/2018 0156 FAX #: [phone] Reason: See reason on US PELVIC NON OB COMPLETE EXAMS: CPT CODE: [id number] [facility] AB/PEL/SC/LTD 21647 Exam: Pelvic sonogram. Location: H 12 History: [...] Fernanda Romo NP Techn ologist: Radha Valentine [facility] RVT Trnscrd Date/Time/By: 12/25/2018 (020) : By: Tootie PAGE 1 Signed Report FAX: Fernanda Dutta [phone] [place]: St: REG Name: CORRIGANOLIVIA LUKE [facility] : 1985 Age/S: 33/F [address] Unit #: [id number] Loc: [place] [address] Phys: Fernanda Romo NP Acct: [id number] Dis Date: Status: RE Lito ER PHONE #: [phone] Exam Date: 12/25/2018 0156 FAX #: [phone] Reason: See reason on US PELVIC NON OB COMPLETE EXAMS: CPT CODE: [id number] DUP AB/PEL/SC/LTD 70123 <Continued> Orig Print D/T: S: 12/25/2018 (4250) PAGE 2 Signed Report BASIC METABOLIC [id number] 00:29:00 Test Item Value Reference Range Interpretation [...] 9.7 mg/dL 8.4-10.2 N CA) LIVER FUNCTION [id number] 00:29:00 Test Item Value Reference Range Interpretation [...] U/L 38-126 N (test code = ALKP) [id number] 00:29:00 Test Item Value Reference Range Interpretation Comments LIPASE (test code = LIP) 44 U/L 23-300 N - CT ABD PELVIS [id number] 00:29:00 FAX: Fernanda Dutta [phone] [place]: St: REG Name: OLIVIA CORRIGAN [facility] : 1985 Age/S: 33/F [address] Unit: [id number] Loc: [place] [address] Phys: Fernanda Romo BEHAVIORIST Acct: [id number] Dis Date: Status: REG ER PHONE #: [phone] Exam Date: 12/25/2018 0018 FAX #: [phone] Reason: diffuse abd pain EXAMS: CPT CODE: [id number] CT ABD PELVIS W/CONT 87728 EXAM: - CT ABD PELVIS W/CONT LOCATION: [...] 1 Signed Report (CONTINUED) FAX: Fernanda Dutta [phone] [place]: St: REG -- Name:OLIVIA CORRIGAN [facility] Cooks : 1985 Age/S: 33/F [address] Unit: [id number] Loc: [place] [address] Phys: Fernanda Romo NP Acct: [id number] Dis Date: Status: REG ER PHONE #: [phone] Exam Date: 12/25/2018 0018 FAX #: [phone] Reason: diffuse abd pain EXAMS: CPT CODE: [id number] CT ABD PELVIS W/CONT 49263 <Continued> Vascular: No evidence of aneurysm or [...] Burleson; BRENNAN DACOSTA Trnscrd Dt/Tm: 12/25/2018 (0029) t.[email or web address] Orig Print D/T: S: 12/25/2018 (0032 PAGE 2 Signed ReportHCG [id number] 00:23:00 Test Item Value Reference Range Interpretation [...] etested after 48 hours toconfirm . URINALYSIS [id number] 00:22:00 Test Item Value Reference Range Interpretation [...] /HPF 0-5 (RARE) = SQU) CBC W/AUTO [id number] 00:19:00 Test Item Value Reference Range Interpretation [...]
[2021-10-04 18:47] LABS: Blood Gas Oxyhemoglobin 94.6 % (94-97); Blood O2 Saturation 97.5 % (92-98.5)
[2021-10-04 19:13] LABS: Absolute Lymphocytes (CBC) 2.5 K/uL (0.7-4.9); Hematocrit 43.8 % (36.0-45.0); MPV 8.7 fL (7.6-11.3)
[2021-10-04 19:20] LABS: Protime INR 1.05
--- NOTE | 2021-10-04 19:21 | RAD REPORT ---
EXAM DESCRIPTION: CT - Head Brain Wo Cont - 10/04/2021 7:13 pm CLINICAL HISTORY: Mental status change, unknown cause Headache, drowsiness COMPARISON: No comparisons TECHNIQUE: All CT scans are performed using dose optimization technique as appropriate and may inclu de automated exposure control or mA/KV adjustment according to patient size. FINDINGS: No intracranial hemorrhage, hydrocephalus or extra-axial fluid collection.No areas of brai n edema or evidence of midline shift. The paranasal sinuses and mastoids are clear. The calvarium is intact. IMPRESSION: No acute intracranial abnormality.
[2021-10-04 19:50] LABS: ALT/SGPT 23 U/L (12-78); AST/SGOT 14 U/L (15-37); Albumin 3.9 g/dL (3.4-5.0); Alkaline Phosphatase 67 U/L (45-117); BUN Blood Urea Nitrogen 13 mg/dL (7-18); Bicarbonate 24 mmol/L (21-32); Bilirubin Direct 0.2 mg/dL (0-0.2); Bilirubin Total 0.5 mg/dL (0.2-1.0); Glomerular Filtration Rate 112 ml/min (=/>90); Glucose Level 83 mg/dL (74-106); Potassium 3.1 mmol/L (3.5-5.1); Sodium Level 141 mmol/L (136-145)
--- NOTE | 2021-10-04 19:54 | ER ---
Nurse's Notes [facility] Name: Lisseth Youngblood Age: 36 yrs Sex: Female : 1985 Arrival Date: 10/04/2021 Time: 18:21 Bed 5 Private MD: Diagnosis: Hyperventilation;Anxiety disorder, unspecified;Hypokalemia Presentation: 10/04 18:28 Chief complaint: EMS states: family thought she was having a seizure, she arrived to [facility] house, was hyperventilating and collapsed , now has cramping to tyler hands and mouth , has hx of seizures but pt states this was not a seizure. Coronavirus screen: At this time, the client does not indicate any symptoms associated with coronavirus-19. Ebola Screen: Patient negative for fever greater than or equal to 101.5 degrees Fahrenheit, and additional compatible Ebola Virus Disease symptoms Patient denies exposure to infectious person. Patient denies travel to an Ebola-affected area in the 21 days before illness onset. No symptoms or risks identified at this time. Initial Sepsis Screen: Does the patient meet any 2 criteria? No. Patient's initial sepsis screen is negative. Does the patient have a suspected source of infection? No. Patient's initial sepsis screen is negative. Risk Assessment: Do you want to hurt yourself or someone else? Patient reports no desire to harm self or others. Onset of symptoms was October 04, 2021. 18:28 Method Of Arrival: EMS: [facility] 18:28 Acuity: CINTHIA 3 Triage Assessment: 18:40 General: Appears uncomfortable, slender, well groomed, Behavior is cooperative, jh6 anxious, crying. Pain: Complains of pain in face and right arm Pain currently is 4 out of 10 on a pain scale. Quality of pain is described as crampy, sharp, tingling, Pain began suddenly, Is continuous. Respiratory: Reports Airway is patent Trachea midline Respiratory effort is even, Respiratory pattern is regular, Onset: The symptoms/episode began/occurred just prior to arrival, the patient has mild shortness of breath. Historical: - Allergies: 18:31 No Known Allergies; iw - PMHx: 18:31 ulcerative colitis; iw - Family history:: not pertinent. Screenin:43 Abuse screen: Denies threats or abuse. Denies injuries from another. Nutritional jh6 screening: No deficits noted. Tuberculosis screening: No symptoms or risk factors identified. Fall Risk IV access (20 points). Mental Status- Overestimates/Forgets Limitations (15 pts.). Assessment: 18:43 General: Appears uncomfortable, Behavior is anxious, crying. Cardiovascular: No [facility] deficits noted. Rhythm is regular. Respiratory: Airway is patent Trachea midline Respiratory effort is even, unlabored, Breath sounds are clear bilaterally. 19:00 Reassessment: Patient and/or family updated on plan of care and expected duration. Pain vc1 level reassessed. Patient is alert, oriented x 3, equal unlabored respirations, skin warm/dry/pink. 20:00 Reassessment: Patient and/or family updated on plan of care and expected duration. Pain vc1 level reassessed. Patient is alert, oriented x 3, equal unlabored respirations, skin warm/dry/pink. Patient states feeling better. Patient states symptoms have improved. Vital Signs: 18:31 BP 104 / 77; Pulse 67; Resp 22; Temp 97.4(TE); Pulse Ox 100% on R/A; Weight 54.88 kg; jh6 Height 5 ft. 4 in. (162.56 cm); Pain 4/10; 20:30 BP 110 / 84; Pulse 72; Resp 17; Pulse Ox 99% ; vc1 18:31 Body Mass Index 20.77 (54.88 kg, 162.56 cm) [facility] ED Course: 18:21 Patient arrived in ED. 1 18:26 [facility]ison [facility] 18:26 Ulysses Martin MD is Attending Physician. [facility] 18:29 Attending Physician role handed off by Ulysses Martin MD christopher 18:29 Pollo Armijo MD is Attending Physician. [facility] 18:30 Triage completed. iw 18:31 Arm band placed on. iw 18:36 Pollo Armijo MD is Attending Physician. christopher 18:44 Bed in low position. Call light in reach. Side rails up X2. Adult w/ patient. 6 18:55 Inserted saline lock: 20 gauge in right antecubital area, using aseptic technique. [facility] Blood collected. 18:[address] [facility] 18:59 Initial lab(s) drawn, by me, sent to lab. EKG done, by ED staff, reviewed by Pollo Armijo MD. 19:02 EKG done, by ED staff, reviewed by Pollo Armijo MD. 3 19:15 CT Head Brain wo Cont In Process Unspecified. EDWY 19:53 Ascencion Morgan MD is Referral Physician. [facility] 19:53 Adryan Samano MD is Referral Physician. [facility] 20:26 Prakash Fuentes, RN is Primary Nurse. jb4 20:48 No provider procedures requiring assistance completed. IV discontinued, intact, vc1 bleeding controlled, No redness/swelling at site. Pressure dressing applied. Administered Medications: 20:06 Drug: Ativan (LORazepam) 1 mg Route: IVP; Site: right antecubital; vc1 20:47 Follow up: Response: No adverse reaction jb4 20:06 Drug: NS 0.9% 1000 ml Route: IV; Rate: 1 bolus; Site: right antecubital; vc1 20:47 Follow up: Response: No adverse reaction; IV Status: Order to discontinue infusion, pt jb4 refused remaing fluid volume; IV Intake: 600ml 20:06 Drug: Keppra (levETIRAcetam) 500 mg Route: PO; vc1 20:47 Follow up: Response: No adverse reaction; Marked relief of symptoms jb4 20:46 Drug: Potassium Effervescent Tablet 50 mEq Route: PO; jb4 20:47 Follow up: Response: Medication administered at discharge. jb4 Intake: 20:47 IV: 600ml; Total: 600ml. jb4 Outcome: 19:53 Discharge ordered by . [facility] 20:49 Patient left the ED. jb4 20:49 Discharged to home ambulatory. vc1 20:49 Condition: good 20:49 Discharge instructions given to patient, family, Instructed on discharge instructions, follow up and referral plans. Demonstrated understanding of instructions, follow-up care, medications, Prescriptions given X 2. Signatures: Dispatcher [employer] EDWY Pollo Armijo MD MD cha Mickail, Joel, PA PA jmm Williams, Irene, RN Ant Swan 1 Prakash Fuentes, GERARDO RN jb4 Beth Aguilar [facility] Isabella Anderson RN RN 6 Hoa Cornejo RN RN vc1
--- NOTE | 2021-10-04 19:54 | EDPHYS ---
Physician Documentation [facility] Name: Lisseth Youngblood Age: 36 yrs Sex: Female : 1985 Arrival Date: 10/04/2021 Time: 18:21 Bed 5 Private MD: ED Physician Pollo Armijo HPI: 10/04 18:39 This 36 yrs old Female presents to ER via EMS with complaints of christopher Hyperventilation. 18:39 anxiety. The patient presents with trouble concentrating. Onset: The symptoms/episode christopher began/occurred just prior to arrival. Possible causes: stress. Associated signs and symptoms: The patient has no apparent associated signs or symptoms. Current symptoms: In the emergency department the patient's symptoms have improved, mildly. Patient's baseline: Neuro: alert and fully oriented. The patient has not experienced similar symptoms in the past. Historical: - Allergies: 18:31 No Known Allergies; iw - PMHx: 18:31 ulcerative colitis; iw - Family history:: not pertinent. ROS: 18:39 Constitutional: Negative for fever, chills, and weight loss, Eyes: Negative for injury, christopher pain, redness, and discharge, ENT: Negative for injury, pain, and discharge, Neck: Negative for injury, pain, and swelling, Cardiovascular: Negative for chest pain, palpitations, and edema, Respiratory: Negative for shortness of breath, cough, wheezing, and pleuritic chest pain, Abdomen/GI: Negative for abdominal pain, nausea, vomiting, diarrhea, and constipation, Back: Negative for injury and pain, : Negative for injury, bleeding, discharge, and swelling, MS/Extremity: Negative for injury and deformity, Skin: Negative for injury, rash, and discoloration, Psych: Negative for depression, anxiety, suicide ideation, homicidal ideation, and hallucinations, Allergy/Immunology: Negative for hives, rash, and allergies, Endocrine: Negative for neck swelling, polydipsia, polyuria, polyphagia, and marked weight changes, Hematologic/Lymphatic: Negative for swollen nodes, abnormal bleeding, and unusual bruising. 18:39 Neuro: Positive for altered mental status. Exam: 18:39 Constitutional: This is a well developed, well nourished patient who is awake, alert, christopher and in no acute distress. Head/Face: Normocephalic, atraumatic. Eyes: Pupils equal round and reactive to light, extra-ocular motions intact. Lids and lashes normal. Conjunctiva and sclera are non-icteric and not injected. Cornea within normal limits. Periorbital areas with no swelling, redness, or edema. ENT: Nares patent. No nasal discharge, no septal abnormalities noted. Tympanic membranes are normal and external auditory canals are clear. Oropharynx with no redness, swelling, or masses, exudates, or evidence of obstruction, uvula midline. Mucous membranes moist. Neck: Trachea midline, no thyromegaly or masses palpated, and no cervical lymphadenopathy. Supple, full range of motion without nuchal rigidity, or vertebral point tenderness. No Meningismus. Chest/axilla: Normal chest wall appearance and motion. Nontender with no deformity. No lesions are appreciated. Cardiovascular: Regular rate and rhythm with a normal S1 and S2. No gallops, murmurs, or rubs. Normal PMI, no JVD. No pulse deficits. Respiratory: Lungs have equal breath sounds bilaterally, clear to auscultation and percussion. No rales, rhonchi or wheezes noted. No increased work of breathing, no retractions or nasal flaring. Abdomen/GI: Soft, non-tender, with normal bowel sounds. No distension or tympany. No guarding or rebound. No evidence of tenderness throughout. Back: No spinal tenderness. No costovertebral tenderness. Full range of motion. Skin: Warm, dry with normal turgor. Normal color with no rashes, no lesions, and no evidence of cellulitis. MS/ Extremity: Pulses equal, no cyanosis. Neurovascular intact. Full, normal range of motion. Neuro: Awake and alert, GCS 15, oriented to person, place, time, and situation. Cranial nerves II-XII grossly intact. Motor strength 5/5 in all extremities. Sensory grossly intact. Cerebellar exam normal. Normal gait. 18:58 ECG was reviewed by the Attending Physician. [facility] Vital Signs: 18:31 BP 104 / 77; Pulse 67; Resp 22; Temp 97.4(TE); Pulse Ox 100% on R/A; Weight 54.88 kg; jh6 Height 5 ft. 4 in. (162.56 cm); Pain 4/10; 20:30 BP 110 / 84; Pulse 72; Resp 17; Pulse Ox 99% ; vc1 18:31 Body Mass Index 20.77 (54.88 kg, 162.56 cm) [facility] MDM: 18:29 Patient medically screened. [facility] 18:41 Differential Diagnosis stress. Differential Diagnosis: CVA, electrolyte abnormality, christopher alcohol intoxication, hypoglycemia, intracranial bleed, overdose, seizure, UTI, . Data reviewed: vital signs, nurses notes, lab test result(s), EKG, radiologic studies, CT scan. Data interpreted: case monitor: rate is 22 beats/min, rhythm is regular, Pulse oximetry: on room air is 100 %. Test interpretation: by ED physician or midlevel provider:. Counseling: I had a detailed discussion with the patient and/or guardian regarding: the historical points, exam findings, and any diagnostic results supporting the discharge/admit diagnosis, lab results, radiology results, the need for outpatient follow up, for definitive care, a family practitioner, a psychiatrist. 18:52 Patient medically screened. [facility] 10/04 18:37 Order name: ABG; Complete Time: 19:26 10/04 18:37 Order name: Acetaminophen; Complete Time: 19:52 10/04 18:37 Order name: Basic Metabolic Panel; Complete Time: 19:52 10/04 18:37 Order name: CBC with Diff; Complete Time: 19:26 10/04 18:37 Order name: ETOH Level; Complete Time: 19:26 10/04 18:37 Order name: Hepatic Function; Complete Time: 19:52 10/04 18:37 Order name: PT-INR; Complete Time: 19:26 10/04 18:37 Order name: Ptt, Activated; Complete Time: 19:26 10/04 18:37 Order name: Salicylate; Complete Time: 19:32 10/04 18:37 Order name: CT Head Brain wo Cont; Complete Time: 19:26 10/04 18:37 Order name: EKG; Complete Time: 18:38 10/04 18:37 Order name: EKG - Nurse/Tech; Complete Time: 18:58 10/04 18:37 Order name: IV Saline Lock; Complete Time: 18:58 10/04 18:37 Order name: Labs collected and sent; Complete Time: 18:58 10/04 18:37 Order name: Suicide Screening ([place]); Complete Time: 18:59 10/04 19:33 Order name: PO challenge; Complete Time: 20:06 christopher EC:58 Rate is 66 beats/min. Rhythm is regular. QRS [place] is Normal. MT interval is normal. QRS christopher interval is normal. QT interval is normal. No Q waves. T waves are Normal. No ST changes noted. Clinical impression: NSR w/ Non-specific ST/T Changes and No evidence of ischemia. Interpreted by me. Reviewed by me. Administered Medications: 20:06 Drug: Ativan (LORazepam) 1 mg Route: IVP; Site: right antecubital; vc1 20:47 Follow up: Response: No adverse reaction jb4 20:06 Drug: NS 0.9% 1000 ml Route: IV; Rate: 1 bolus; Site: right antecubital; vc1 20:47 Follow up: Response: No adverse reaction; IV Status: Order to discontinue infusion, pt jb4 refused remaing fluid volume; IV Intake: 600ml 20:06 Drug: Keppra (levETIRAcetam) 500 mg Route: PO; vc1 20:47 Follow up: Response: No adverse reaction; Marked relief of symptoms jb4 20:46 Drug: Potassium Effervescent Tablet 50 mEq Route: PO; jb4 20:47 Follow up: Response: Medication administered at discharge. jb4 Disposition Summary: 10/04/21 19:53 Discharge Ordered Location: Home christopher Problem: new christopher Symptoms: have improved christopher Condition: Stable christopher Diagnosis - Hyperventilation christopher - Anxiety disorder, unspecified christopher - Hypokalemia christopher Followup: christopher - With: Private Physician - When: 2 - 3 days - Reason: Recheck today's complaints, Re-evaluation by your physician Followup: christopher - With: - When: 2 - 3 days - Reason: Recheck today's complaints, Continuance of care, Re-evaluation by your physician Followup: christopher - With: - When: 2 - 3 days - Reason: Recheck today's complaints, Re-evaluation by your physician Discharge Instructions: - Discharge Summary Sheet christopher - Panic Attack christopher - Hyperventilation christopher - Panic Attack, [id number] christopher - Potassium Content of Foods christopher - Hypokalemia christopher - Managing Anxiety, Adult christopher Forms: - Work release form christopher - Medication Reconciliation Form christopher - Thank You Letter christopher - Antibiotic Education christopher - Prescription Opioid Use christopher Prescriptions: - Hydroxyzine HCl 25 mg Oral Tablet - take 1 tablet by ORAL route every 6 hours As needed; 30 tablet; Refills: 0, [facility] Product Selection Permitted - Keppra 500 mg Oral Tablet - take 1 tablet by ORAL route every 12 hours; 40 tablet; Refills: 0, Product [facility] Selection Permitted Signatures: Dispatcher [employer] EDMN Pollo Armijo MD MD cha Williams, Irene, RN RN iw Bryson, James, RN RN jb4 Hoa Cornejo RN RN vc1 Corrections: (The following items were deleted from the chart) 19:54 19:39 COMPREHENSIVE METABOLIC PANEL+C.LAB.BRZ ordered. [facility] EDMN 19:54 19:52 COMPREHENSIVE METABOLIC PANEL+C.LAB.BRZ reviewed. [facility] 20:47 18:37 Urine Dipstick-Ancillary [place]. [place] [id number] 20:47 18:37 Urine Test ordered. [place] [id number]
[2021-10-04] MEDS ORDERED: LORazepam 2 MG/ML VIAL ONE (19:59)
[2021-10-04] MEDS ORDERED: NA CHLORIDE 0.9% 1,000 ML ONE (20:00)
[2021-10-04] MEDS ORDERED: levETIRAcetam 500 MG TAB ONE (20:00)
[2021-10-04] MEDS ORDERED: POTASSIUM 25 MEQ EFFERV TAB ONE (20:38)
[2021-10-04 20:58] VITALS: TEMP 97.4
[2021-10-04 20:59] VITALS: BP 110/84; O2SAT 99
--- NOTE | 2021-10-06 11:08 | EKG ---
Test Date: 2021-10-04 Test Time: 18:51:40 Operational Intelligence Officer: GLENYS MEASUREMENT RESULTS: Intervals: Rate: 66 CO: 150 QRSD: 94 QT: 422 QTc: 442 [place]: P: 76 CO: 150 QRS: -22 T: 63 INTERPRETIVE STATEMENTS: Normal sinus rhythm with sinus arrhythmia Normal ECG No previous ECG available for comparison Electronically Signed On 10-06-21 11:06:57 CDT by Prashanth Soriano
== END 2021-10-04 20:49 | disposition home or self-care (01) ==
LOC: ER 18:16
DX: R06.4 Hyperventilation (principal); F41.9 Anxiety disorder, unspecified; E87.6 Hypokalemia
CPT/HCPCS: 36415; 70450; 80048; 80076; 80320; 80329; 82805; 85025; 85610; 85730; 93005; 96361; 96374; 99285; J7030